=== PATIENT | male | born 1955 | race Caucasian/White ===

== ENCOUNTER 2017-05-24 01:27 | Emergency (ER) | payer BC ==
--- NOTE | 2017-05-24 03:45 | ED ORDER SUMMARY ---
..... Patient: JULIANNE PAINTING OrderSheet [facility] VisitID: [id number] [place] [address] 61y, M Registration Date/Time: 05/24/2017 ORDER SHEET Weight: 88.4 kg (stated) Allergies: No Known Drug Allergy GENERAL ORDERS: UA-Culture if indicated Urgent (02:03 05/24/2017 Jassiier R.NGianni per protocol) (2:05 Adalberto R.N.) CT Abd/Pel wo Cont Urgent (02:05/24/2017 Rodger Jasso) (Ack 2:34 Cruz) (2:52 RCollier R.N.) CBC w Diff Urgent (02:05/24/2017 Rodger Jasso) (Ack 2:34 Cruz) (2:35 RCollier R.N.) BMP Urgent (02:05/24/2017 Rodger Jasso) (Ack 2:34 Cruz) (2:35 RCollier R.N.) MEDICATION ORDERS: IV FLUIDS: IV NS : initial bolus 1000 mL (1000 mL/hr), then none - for X1 (NOW) (02:05/24/2017 Rodger Jasso) (Ack 2:18 RCollier R.N.) (2:26 RCollier R.N.) Morphine IV 4 mg (HIGH ALERT MEDICATION, NOW) (02:05/24/2017 Rodger Jasso) (Ack 2:18 RCollier R.N.) (2:28 RCollier R.N.) Toradol IV 30 mg (NOW) (02:05/24/2017 Rodger Jasso) (Ack 2:18 RCollier R.N.) (2:28 RCollier R.N.) IV NS : initial bolus 1000 mL (1000 mL/hr), then none - for X1 (NOW) (02:05/24/2017 Rodger Jasso) (Cancelled: Duplicate Order2:13 Rodger Jasso) Zofran IV 4 mg (NOW) (02:05/24/2017 Rodger Jasso) (Ack 2:26 RCollier R.N.) (2:27 Tato R.Andreas) ORDER SHEET NOTES: [Electronically signed by Bernadine Kirby R.N. (04:03 05/24/2017)] [Electronically signed by Bertin Mckeon Dr. (05:10 05/27/2017)] [Electronically locked/signed by Bernadine Kirby R.N. (04:03 05/24/2017)]
--- NOTE | 2017-05-24 03:45 | ED CLINICAL REPORT ---
Clinical Report - Physicians/Mid Levels [facility] [address] [place] [address] 05/24/2017 1:30 Patient: JULIANNE PAINTING Time Seen: 0203. Arrived- By private vehicle. Historian- patient. HISTORY OF PRESENT ILLNESS Chief Complaint: FLANK PAIN and Left. At its maximum, severity described as severe. When seen in the E.D., severity described as severe. Modifying factors- worsened by movement. Not relieved by anything. It is described as sharp. No radiation. It is described as located in the left flank. This started just prior to arrival today and is still present. It was abrupt in onset and has been constant but is not gone now. The patient has had nausea and vomiting. No loss of appetite or diarrhea. No additional abdominal pain. No recent travel. Similar symptoms previously: Once. ( states this feels exactly like a prior kidney stone about 6 years ago). Recent medical care: Not recently seen/assessed. REVIEW OF SYSTEMS No constipation, black stools, hematemesis, bloody stools or fever. No skin rash. All systems otherwise negative, except as recorded above. PAST HISTORY See nurses notes. Medications: Triamterene Oral. Allergies: No Known Drug Allergy. SOCIAL HISTORY Never smoker. History of occasional drug use: marijuana. No alcohol use. No recent travel. Is a local resident. ADDITIONAL NOTES The nursing notes have been reviewed. PHYSICAL EXAM Vital Signs: 05/24/2017 01:36 BP: 188/104. HR: 63. RR: 22. O2 saturation: 93%. Temp: 98.7 F. Araya-Rangel pain scale: 8/10. Oxygen saturation normal. Appearance: Alert. Oriented X3. Patient in mild distress. CVS: Normal heart rate and rhythm. Heart sounds normal. Pulses normal. Respiratory: No respiratory distress. Breath sounds normal. Chest nontender. Abdomen: Soft and nontender. Bowel sounds normal. Back: Moderate CVA tenderness on the left. Skin: Skin warm and dry. Normal skin color. No rash. Normal skin turgor. Extremities: Extremities exhibit normal ROM. No lower extremity edema. LABS, X-RAYS, AND EKG Abdominal CT: PROCEDURE: CT ABDOMEN/PELVIS W/O CONTRAST INDICATION: LEFT FLANK PAIN TECHNIQUE: Noncontrast axial images were obtained of the entire abdomen and pelvis with sagittal and coronal reformations. COMPARISON: None. FINDINGS: ABDOMEN: There is a 7.3 x 6.8 mm left UVJ calculus with moderate left hydroureteronephrosis. 5 mm nonobstructing left renal lower pole calculus. There is a punctate nonobstructing right renal calculus. Small bilateral radiodense cortical cysts. Lung base are clear. Heart size is normal. Liver, gallbladder, pancreas, spleen and adrenal glands are normal. Mild atherosclerosis. Mild transverse and descending colon diverticulosis. Distal transverse colon 6 x 3.5 x 2 cm lipoma. PELVIS: Appendix not visualized but no evidence of acute appendicitis. Moderate proximal sigmoid colon diverticulosis. Enlarged prostate. There are several calcified bladder calculi. Severe L5-S1 degenerative changes. IMPRESSION: 1. 7.3 x 6.8 mm left UVJ calculus with moderate left hydroureteronephrosis 2. Bilateral nonobstructing renal calculi 3. Several tiny bladder calculi 4. Diverticulosis 5. Distal transverse colon lipoma 6. Enlarged prostate. The study was independently viewed by me and interpreted by the radiologist. The study was discussed with the radiologist (via fax and pacs). Laboratory Tests: UA-Culture if indicated: (COLIN: 05/24/2017 01:50) ( MsgRcvd 05/24/2017 02:19) Final results Test Result Flag Units (Reference) URINE COLOR YELLOW URINE APPEARANCE CLEAR URINE GLUCOSE NEGATIVE (NEGATIVE) URINE BILIRUBIN NEGATIVE (NEGATIVE) URINE KETONE NEGATIVE (NEGATIVE) URINE SPECIFIC GRAVITY 1.020 (1.010-1.030) URINE PH 6.0 (5.0-8.0) URINE PROTEIN NEGATIVE (NEGATIVE) URINE UROBILINOGEN 0.2 EU/dL (0.2-1.0) URINE NITRITE NEGATIVE (NEGATIVE) URINE BLOOD TRACE-INTACT (NEGATIVE) URINE LEUK ESTERASE NEGATIVE (NEGATIVE) URINE RBC RARE rbc/hpf (0-1) URINE WBC 5-10 wbc/hpf (0-1) URINE EPITHELIAL CELLS 0-1 EPI/hpf (0-5) URINE BACTERIA FEW (1+) (NONE SEEN) URINE COMMENT CULT NOT INDICATED URINE CULTURES ARE SET-UP BASED ON THE FOLLOWING CRITERIA:POSITIVE NITRITEPOSITIVE LEUKOCYTE ESTERASEGREATER THAN 10 WHITE BLOOD CELLSMODERATE (2+) OR GREATER BACTERIA CBC w Diff: (COLIN: 05/24/2017 01:55) ( MogRcvd 05/24/2017 02:26) Final results Test Result Flag Units (Reference) WHITE BLOOD COUNT 14.0 H K/uL (4.5-11.5) RED BLOOD COUNT 4.94 M/uL (4.50-5.90) HEMOGLOBIN 15.6 gm/dL (13.5-17.5) HEMATOCRIT 46.5 % (41.0-53.0) MEAN CELL VOLUME 94 fL (80-100) MEAN CORPUSCULAR HGB 32 pg (26-34) MEAN CORPUSCULAR HGB CONC 34 g/dL (31-37) RED CELL DISTRIBUTION WIDTH 13.3 % (11.6-14.8) PLATELET COUNT 288 K/uL (150-400) LYMPH % 31.9 % (25-40) MONO % 3.2 % (3-14) GRANULOCYTE % 64.9 % (53-90) BMP: (COLIN: 05/24/2017 01:55) ( MsgRcvd 05/24/2017 02:28) Final results Test Result Flag Units (Reference) GLUCOSE 192 H mg/dL (70-110) BUN 23 H mg/dL (7-18) CREATININE 1.0 mg/dL (0.6-1.3) Estimated GFR >60 mL/min Estimated GFR- >60 mL/min Note: Persistent reduction over 3 months in eGFR<60 mL/min/1.73 m2 defines CKD. Patients with eGFR values>=60 mL/min/1.73 m2 may also have CKD if evidence ofpersistent proteinuria. Additional information may be foundat www.kidney.org. SODIUM 144 mmol/L (136-145) POTASSIUM 3.7 mmol/L (3.5-5.1) CHLORIDE 106 mmol/L (98-107) CARBON DIOXIDE 31 mmol/L (21-32) CALCIUM 9.1 mg/dL (8.5-10.1) . PROGRESS AND PROCEDURES Course of Care: the patient is a pleasant 61-year-old male presenting for evaluation of left-sided flank pain. This time differential diagnosis includes bowel obstruction, pyelonephritis, or renal colic. Pain medication as been ordered as the working diagnosis at this time is acute renal colic. She has reported similar symptoms withan episode of kidney stones in the past. Patient is agreeable to treatment plan. The patient's workup was remarkable for a rather large stone noted at the UVJ. Because the stone is at the UVJ, there is a high likelihood of the stone passing spontaneously. Upon reevaluation, the patient is resting sound asleep and snoring. Patient appears very comfortable on repeat examination. Patient was awoken and appropriate. Discussed with patient his workup here in the emergency department including diagnosis, home care, follow-up, and return precautions. Recommended patient follow up with urology in regards to other stones that are present in his kidney. Disposition: Discharged. Condition: good. CLINICAL IMPRESSION 05/24/2017 02:51 BP: 128/94. HR: 76. RR: 16. O2 saturation: 89%. Araya-Rangel pain scale: 2/10. Microscopic hematuria (acute). Blood pressure normal. Ureterolithiasis (single stone) in the right ureter (acute). Mild leukocytosis (acute). INSTRUCTIONS Warnings: GENERAL WARNINGS: Return or contact your physician immediately if your condition worsens or changes unexpectedly, if not improving as expected, or if other problems arise. SPECIFICALLY, return if you develop pain, fever, vomiting, the inability to keep fluids down, blood in vomitus, blood in diarrhea, fainting or lightheadedness. Your Current Medications: CONTINUE TAKING THE FOLLOWING MEDICATIONS: Triamterene Oral. Prescription Medications: Zofran (orally disintegrating tablets) 4 mg: take 1 orally every 8 hours as needed for nausea and vomiting. Dispense ten (10). No refill. Substitution is permissible. Motrin 600 mg tablets: take 1 tablet orally as needed for pain. Dispense thirty (30). No refill. Substitution is permissible. (take with food) Percocet 5 mg/325 mg: take 1 tablet orally every 6 hours as needed for pain. Dispense twenty (20). No refill. Substitution is permissible. Follow-up: Return to the emergency department as needed. Follow up with your doctor in three days. Reason for referral: recheck today's concerns. Summary of care provided to patient via paper. Screening today revealed the patient's blood pressure to be in the normal range. The patient should follow up with a primary care provider for blood pressure management. Understanding of the discharge instructions verbalized by patient. Follow-up with: Phillip Celis MD, Urology, , [address] [place] [address], , [place], [id number] Follow up in one week. Reason for referral: recheck today's concerns. Summary of care provided to patient via paper. (Electronically signed by Bertin Mckeon Dr. 05/27/2017 5:10) Addenda for JULIANNE PAINTING VisitID: [id number] Date: 05/24/2017 05/24/2017 12:25 Pharmacy called, clarified Motrin order RX for pt to take Motrin 600mg #[address] Cruz wrote RX, Dr. Edge clarified due to no amount or frequency ordered. (Electronically signed by Oren Huerta R.N. - 05/24/2017 12:25)
--- NOTE | 2017-05-24 03:45 | ED NURSING NOTES ---
Clinical Report - Nurses [facility] [address] [place] [address] 05/24/2017 1:30 Patient: JULIANNE PAINTING TRIAGE Triage time 01:36. Acuity: LEVEL 3. Chief Complaint: ABDOMINAL PAIN, NAUSEA and VOMITING and FLANK PAIN (left sided abd and flank pain). Alert. --01:42 Linnette Barrera R.N. 01:36 05/24/17. BP: 188/104. HR: 63. RR: 22. O2 saturation: 93%. Temp: 98.7 F (oral). Araya-Rangel pain scale: 8/10. --01:42 Linnette Barrera R.N. Weight: 88.4 kg stated. Height/Length: 69 inches Per Patient. BMI: 28.8. --01:38 Linnette Barrera R.N. Medications Triamterene Oral. --01:37 Linnette Barrera R.N. Allergies No Known Drug Allergy. --01:37 Linnette Barrera R.N. History Arrived by private vehicle. Historian: patient. Primary physician (Stefania). This started today. Onset. (about 2 hours ago). 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 PAST MEDICAL HX: Immunizations: up-to-date. SOCIAL HX: Smoker- current status unknown. History of drug use: marijuana. No alcohol use. NUTRITIONAL RISK ASSESSMENT: The nutritional risk assessment revealed no deficiencies. FUNCTIONAL ASSESSMENT: Functional assessment: no impairments noted. --01:42 Linnette Barrera R.N. PROBLEMS: Nephrolithiasis. Hypertension. --01:37 Linnette Barrera R.N. ADDITIONAL SURGERIES: Appendectomy. Tonsillectomy. --01:37 Linnette Barrera R.N. Interventions ID band on patient. To treatment room. --01:42 Linnette Barrera R.N. PHYSICAL ASSESSMENT To room via wheelchair. Patient gowned. GENERAL / NEURO / PSYCH: Alert. Oriented X 4. Appears in pain and anxious. CVS: Capillary refill less than 2 seconds. SKIN: Skin is warm and dry. --01:42 Linnette Barrera R.N. NURSING PROGRESS NOTES Head of bed elevated. Two patient identifiers checked. Call light placed in reach. Side rails up x 1. Bed placed in lowest position. Brakes of bed on. --01:43 Linnette Barrera R.N. Patient ready for evaluation- chart flagged. --01:43 Linnette Barrera R.N. ( pt given urinal and sample requested.). --01:44 Linnette Barrera R.N. 02:00 05/24/2017 Site #1 started via IV in the right antecubital space with an 20g angiocath, with aseptic technique and good blood return; one attempt. Blood drawn: rainbow set. Labeled in the presence of the patient and sent to the lab. Saline lock flushed with 10 mL saline. --02:00 Linnette Barrera R.N. Patient ID band checked for patient name and birthdate: patient confirmed urine collected with return of yellow-colored clear urine; sample sent to lab. Specimen labeled in the presence of the patient. --02:00 Linnette Barrera R.N. GI / : The patient reports vomiting. --02:01 Linnette Barrera R.N. Patient returned from CT by stretcher with tech. (02:49). --02:51 Linnette Barrera R.N. 02:51 05/24/17. BP: 128/94. HR: 76. RR: 16. O2 saturation: 89% on room air. Araya-Rangel pain scale: 2/10. --02:52 Linnette Barrera R.N. 03:41 05/24/2017 IV Fluids IV NS Discontinued: completed. Total amount infused: 1000 mL. IV patency established. IV site checked: no pain, redness, or swelling. IV flushed thoroughly. --03:41 Bernadine Kirby R.N. DISPOSITION / DISCHARGE 02:20 05/24/2017 Started bag #1 1000 mL IV Fluids IV NS (Saline); at 1000 mL/hr via site #1 via IV pump. Allergies verified and confirmed 5 rights. IV patency established. IV site checked: no pain, redness, or swelling. IV flushed thoroughly pre- and post-medication administration. --02:26 Linnette Barrera R.N. 02:21 05/24/2017 Zofran (Ondansetron HCl) IVP 4 mg given over 30 second(s) via site #1. Allergies verified and confirmed 5 rights. IV patency established. IV site checked: no pain, redness, or swelling. IV flushed thoroughly pre- and post-medication administration. IVP given by RN. --02:27 Linnette Barrera R.N. 02:23 05/24/2017 Toradol IVP 30 mg given over 1 minute(s) via site #1. Allergies verified and confirmed 5 rights. IV patency established. IV site checked: no pain, redness, or swelling. IV flushed thoroughly pre- and post-medication administration. IVP given by RN. --02:28 Linnette Barrera R.N. 02:25 05/24/2017 Morphine IVP 4 mg given over 60 second(s) via site #1. Allergies verified, confirmed 5 rights and sedative warning given to the patient. IV patency established. IV site checked: no pain, redness, or swelling. IV flushed thoroughly pre- and post-medication administration. IVP given by RN. --02:28 Linnette Barrera R.N. Departure time: 0400. Condition at departure: improved and stable. No learning barriers present. Discharge instructions provided and reviewed with the patient. Reviewed medication(s) side effects, precautions, dosing and course information. Prescription(s) given to the patient. Reviewed referral to a urologist for followup. Patient verbalized understanding. Written instructions provided in Thai. The patient was discharged home and accompanied by family. He left the Emergency Department ambulatory and via private vehicle. Family member driving. --04:02 Bernadine Kirby R.N. 04:00 05/24/17. BP: 154/94 taken on the left arm, while lying. HR: 85 (regular). RR: 18 (regular and unlabored). O2 saturation: 93% on room air. Temp: deferred. Pain level now: 12/07. --04:02 Bernadine Kirby R.N. 04:00 05/24/2017 Site #1 removed upon discharge. Catheter intact. Manual pressure and bandage applied. --04:02 Bernadine Kirby R.N. Locked/Released at 05/24/2017 4:03 by Bernadine Kirby R.N.
--- NOTE | 2017-05-24 03:45 | ED ORDER SUMMARY ---
..... Patient: JULIANNE PAINTING OrderSheet [facility] VisitID: [id number] [place] [address] 61y, M Registration Date/Time: 05/24/2017 ORDER SHEET Weight: 88.4 kg (stated) Allergies: No Known Drug Allergy GENERAL ORDERS: UA-Culture if indicated Urgent (02:03 05/24/2017 Jassiier R.NGianni per protocol) (2:05 Adalberto R.N.) CT Abd/Pel wo Cont Urgent (02:05/24/2017 Rodger Jasso) (Ack 2:34 Cruz) (2:52 RCollier R.N.) CBC w Diff Urgent (02:05/24/2017 Rodger Jasso) (Ack 2:34 Cruz) (2:35 RCollier R.N.) BMP Urgent (02:05/24/2017 Rodger Jasso) (Ack 2:34 Cruz) (2:35 RCollier R.N.) MEDICATION ORDERS: IV FLUIDS: IV NS : initial bolus 1000 mL (1000 mL/hr), then none - for X1 (NOW) (02:05/24/2017 Rodger Jasso) (Ack 2:18 RCollier R.N.) (2:26 RCollier R.N.) Morphine IV 4 mg (HIGH ALERT MEDICATION, NOW) (02:05/24/2017 Rodger Jasso) (Ack 2:18 RCollier R.N.) (2:28 RCollier R.N.) Toradol IV 30 mg (NOW) (02:05/24/2017 Rodger Jasso) (Ack 2:18 RCollier R.N.) (2:28 RCollier R.N.) IV NS : initial bolus 1000 mL (1000 mL/hr), then none - for X1 (NOW) (02:05/24/2017 Rodger Jasso) (Cancelled: Duplicate Order2:13 Rodger Jasso) Zofran IV 4 mg (NOW) (02:05/24/2017 Rodger Jasso) (Ack 2:26 RCollier R.N.) (2:27 Tato R.Andreas) ORDER SHEET NOTES: [Electronically signed by Bernadine Kirby R.N. (04:03 05/24/2017)] [Electronically signed by Bertin Mckeon Dr. (05:10 05/27/2017)] [Electronically locked/signed by Bernadine Kirby R.N. (04:03 05/24/2017)]
--- NOTE | 2017-05-24 06:34 | DIAGNOSTIC IMAGING REPORT ---
PROCEDURE: CT ABDOMEN/PELVIS W/O CONTRAST INDICATION: LEFT FLANK PAIN TECHNIQUE: Noncontrast axial images were obtained of the entire abdomen and pelvis with sagittal and coronal reformations. COMPARISON: None. FINDINGS: ABDOMEN: There is a 7.3 x 6.8 mm left UVJ calculus with moderate left hydroureteronephrosis. 5 mm nonobstructing left renal lower pole calculus. There is a punctate nonobstructing right renal calculus. Small bilateral radiodense cortical cysts. Lung base are clear. Heart size is normal. Liver, gallbladder, pancreas, spleen and adrenal glands are normal. Mild atherosclerosis. Mild transverse and descending colon diverticulosis. Distal transverse colon 6 x 3.5 x 2 cm lipoma. PELVIS: Appendix not visualized but no evidence of acute appendicitis. Moderate proximal sigmoid colon diverticulosis. Enlarged prostate. There are several calcified bladder calculi. Severe L5-S1 degenerative changes. IMPRESSION: 1. 7.3 x 6.8 mm left UVJ calculus with moderate left hydroureteronephrosis 2. Bilateral nonobstructing renal calculi 3. Several tiny bladder calculi 4. Diverticulosis 5. Distal transverse colon lipoma 6. Enlarged prostate 7. Preliminary results submitted by Dr. Portillo, [facility] radiology All CT scans at this facility use dose modulation, iterative reconstruction, and/or weight-based dosing when appropriate to reduce radiation dose to as low as reasonably achievable.
--- NOTE | 2017-05-27 05:10 | ED DISCHARGE INSTRUCTIONS ---
Patient: JULIANNE PAINTING General Instructions [facility] VisitID: [id number] [place] [address] 61y, M Registration Date/Time: 05/24/2017 05/24/2017 02:51 BP: 128/94. HR: 76. RR: 16. O2 saturation: 89%. Araya-Rangel pain scale: 2/10. Microscopic hematuria (acute). Blood pressure normal. Ureterolithiasis (single stone) in the right ureter (acute). Mild leukocytosis (acute). INSTRUCTIONS Warnings: GENERAL WARNINGS: Return or contact your physician immediately if your condition worsens or changes unexpectedly, if not improving as expected, or if other problems arise. SPECIFICALLY, return if you develop pain, fever, vomiting, the inability to keep fluids down, blood in vomitus, blood in diarrhea, fainting or lightheadedness. Your Current Medications: CONTINUE TAKING THE FOLLOWING MEDICATIONS: Triamterene Oral. Prescription Medications: Zofran (orally disintegrating tablets) 4 mg: take 1 orally every 8 hours as needed for nausea and vomiting. Dispense ten (10). No refill. Substitution is permissible. Motrin 600 mg tablets: take 1 tablet orally as needed for pain. Dispense thirty (30). No refill. Substitution is permissible. (take with food) Percocet 5 mg/325 mg: take 1 tablet orally every 6 hours as needed for pain. Dispense twenty (20). No refill. Substitution is permissible. Follow-up: Return to the emergency department as needed. Follow up with your doctor in three days. Reason for referral: recheck today's concerns. Summary of care provided to patient via paper. Screening today revealed the patient's blood pressure to be in the normal range. The patient should follow up with a primary care provider for blood pressure management. Understanding of the discharge instructions verbalized by patient. Follow-up with: Phillip Celis MD, Urology, , [address] [place] [address], , [place], [id number] Follow up in one week. Reason for referral: recheck today's concerns. Summary of care provided to patient via paper. ADDITIONAL INFORMATION Kidney Stone (W/ Colic) The sharp cramping pain and nausea/vomiting that you have is due to a small stone which has formed in the kidney and is now passing down a narrow tube (ureter) on its way to your bladder. Once it reaches your bladder, the pain will stop. The stone may pass in your urine stream in one piece. [The size may be 1/16" to 1/4" (1-6mm)]. Or, the stone may also break up into esa fragments which you may not even notice. Once you have had a kidney stone, you are at risk for developing another one in the future. Home Care: Drink plenty of fluids (at least 8 to 10 glasses of water a day). Most stones will pass on their own, but may take from a few hours to a few days. Sometimes the stone is too large to pass by itself and special methods will have to be used to remove the stone. Each time you urinate, do so in a jar. Pour the urine from the jar through the strainer and into the toilet. Continue doing this until 24 hours after your pain stops. By then, if there was a kidney stone, it should pass from your bladder. Some stones dissolve into sand-like particles and pass right through the strainer. In that case, you wont ever see a stone. Save any stone that you find in the strainer and bring it to your doctor for analysis. It may be possible to prevent certain types of stones from forming. Therefore, it is important to know what kind of stone you have. Try to stay as active as possible since this will help the stone pass. Do not stay in bed unless your pain prevents you from getting up. You may notice a red, pink or brown color to your urine. This is normal while passing a kidney stone. Follow Up with your doctor or return to this facility if the pain lasts more than 48 hours. Get Prompt Medical Attention if any of the following occur: Pain that is not controlled by the medicine given Repeated vomiting or unable to keep down fluids Weakness, dizziness or fainting Fever of 100.4F (38C) or higher, or as directed by your healthcare provider Passage of solid red or brown urine (can't see through it) or urine with lots of blood clots Unable to pass urine for 8 hours and increasing bladder pressure Blood In The Urine Blood in the urine ("hematuria") has many possible causes. If it occurs after an injury (such as a car accident or fall), it is most often a sign of bruising to the kidney or bladder. Common medical causes of blood in the urine include urinary tract infection, kidney stone, inflammation, tumors, or certain other diseases of the kidney or bladder. Menstruation can cause blood to appear in the urine sample, although it is not coming from the urinary tract. If only a trace amount of blood is present, it will show up on the urine test, even though the urine may be yellow and not pink or red. This may occur with any of the above conditions, as well as heavy exercise or high fever. In this case, your doctor may want to repeat the urine test on another day. This will show if the blood is still present. If so, then other tests can be done to find out the cause. Home Care: If your urine does not appear bloody (pink, brown or red) then you do not need to restrict your activity in any way. If you can see blood in your urine, rest and avoid heavy exertion until your next exam. Do not use aspirin or anti-inflammatory medicine like ibuprofen (Motrin, Advil) or naproxen (Naprosyn, Aleve). These thin the blood and may increase bleeding. Follow Up with your doctor or as advised by our staff. If you were injured and had blood in your urine, you should have a repeat urine test in 1-2 days. Contact your doctor or return to this facility for this test. [NOTE: A radiologist will review any X-rays that were taken. We will notify you of any new findings that may affect your care.] Get Prompt Medical Attention if any of the following occur: Bright red blood or blood clots in the urine (if a new symptom) Weakness, dizziness or fainting New groin, abdominal or back pain Fever of 100.4F (38C) or higher, or as directed by your healthcare provider Repeated vomiting Bleeding from nose, gums or easy bruising Ondansetron Oral disintegrating tablet What is this medicine? ONDANSETRON (on KATHERINE se emma) is used to treat nausea and vomiting caused by chemotherapy. It is also used to prevent or treat nausea and vomiting after surgery. How should I use this medicine? These tablets are made to dissolve in the mouth. Do not try to push the tablet through the foil backing. With dry hands, peel away the foil backing and gently remove the tablet. Place the tablet in the mouth and allow it to dissolve, then swallow. While you may take these tablets with water, it is not necessary to do so. Talk to your supervisor bridges and buildings regarding the use of this medicine in children. Special care may be needed. What side effects may I notice from receiving this medicine? Side effects that you should report to your doctor or health post acute care nurse practitioner as soon as possible: allergic reactions like skin rash, itching or hives, swelling of the face, lips, or tongue breathing problems dizziness fast or irregular heartbeat feeling faint or lightheaded, falls fever and chills swelling of the hands and feet tightness in the chest Side effects that usually do not require medical attention (report to your doctor or health post acute care nurse practitioner if they continue or are bothersome): constipation or diarrhea headache What may interact with this medicine? Do not take this medicine with any of the following medications: -apomorphine -cisapride -dofetilide -dronedarone -pimozide -thioridazine -ziprasidone This medicine may also interact with the following medications: -carbamazepine -phenytoin -rifampicin -tramadol -other medicines that prolong the QT interval (cause an abnormal heart rhythm) What if I miss a dose? If you miss a dose, take it as soon as you can. If it is almost time for your next dose, take only that dose. Do not take double or extra doses. Where should I keep my medicine? Keep out of the reach of children. Store between 2 and 30 degrees C (36 and 86 degrees F). Throw away any unused medicine after the expiration date. What should I tell my health care provider before I take this medicine? They need to know if you have any of these conditions: heart disease history of irregular heartbeat liver disease low levels of magnesium or potassium in the blood an unusual or allergic reaction to ondansetron, granisetron, other medicines, foods, dyes, or preservatives or trying to get breast-feeding What should I watch for while using this medicine? Check with your doctor or health post acute care nurse practitioner as soon as you can if you have any sign of an allergic reaction. Ibuprofen Oral tablet What is this medicine? IBUPROFEN (eye BYOO proe fen) is a non-steroidal anti-inflammatory drug (NSAID). It is used for dental pain, fever, headaches or migraines, osteoarthritis, rheumatoid arthritis, or painful monthly periods. It can also relieve minor aches and pains caused by a cold, flu, or sore throat. How should I use this medicine? Take this medicine by mouth with a glass of water. Follow the directions on the prescription label. Take this medicine with food if your stomach gets upset. Try to not lie down for at least 10 minutes after you take the medicine. Take your medicine at regular intervals. Do not take your medicine more often than directed. A special MedGuide will be given to you by the pharmacist with each prescription and refill. Be sure to read this information carefully each time. Talk to your supervisor bridges and buildings regarding the use of this medicine in children. Special care may be needed. What side effects may I notice from receiving this medicine? Side effects that you should report to your doctor or health post acute care nurse practitioner as soon as possible: allergic reactions like skin rash, itching or hives, swelling of the face, lips, or tongue black or bloody stools, blood in the urine or in vomit breathing problems changes in vision chest pain general ill feeling or flu-like symptoms nausea or vomiting redness, blistering, peeling or loosening of the skin, including inside the mouth slurred speech or weakness on one side of the body stomach pain unexplained weight gain or swelling unusually weak or tired yellowing of eyes or skin Side effects that usually do not require medical attention (report to your doctor or health post acute care nurse practitioner if they continue or are bothersome): constipation or diarrhea dizziness gas or heartburn stomach upset What may interact with this medicine? Do not take this medicine with any of the following medications: cidofovir ketorolac methotrexate pemetrexed This medicine may also interact with the following medications: alcohol aspirin diuretics lithium other drugs for inflammation like prednisone warfarin What if I miss a dose? If you miss a dose, take it as soon as you can. If it is almost time for your next dose, take only that dose. Do not take double or extra doses. Where should I keep my medicine? Keep out of the reach of children. Store at room temperature between 15 and 30 degrees C (59 and 86 degrees F). Keep container tightly closed. Throw away any unused medicine after the expiration date. What should I tell my health care provider before I take this medicine? They need to know if you have any of these conditions: asthma cigarette smoker drink more than 3 alcohol containing drinks a day heart disease or circulation problems such as heart failure or leg edema (fluid retention) high blood pressure kidney disease liver disease stomach bleeding or ulcers an unusual or allergic reaction to ibuprofen, aspirin, other NSAIDS, other medicines, foods, dyes, or preservatives or trying to get breast-feeding What should I watch for while using this medicine? Tell your doctor or healthcare professional if your symptoms do not start to get better or if they get worse. This medicine does not prevent heart attack or stroke. In fact, this medicine may increase the chance of a heart attack or stroke. The chance may increase with longer use of this medicine and in people who have heart disease. If you take aspirin to prevent heart attack or stroke, talk with your doctor or health post acute care nurse practitioner. Do not take other medicines that contain aspirin, ibuprofen, or naproxen with this medicine. Side effects such as stomach upset, nausea, or ulcers may be more likely to occur. Many medicines available without a prescription should not be taken with this medicine. This medicine can cause ulcers and bleeding in the stomach and intestines at any time during treatment. Ulcers and bleeding can happen without warning symptoms and can cause . To reduce your risk, do not smoke cigarettes or drink alcohol while you are taking this medicine. You may get drowsy or dizzy. Do not drive, use machinery, or do anything that needs mental alertness until you know how this medicine affects you. Do not stand or sit up quickly, especially if you are an older patient. This reduces the risk of dizzy or fainting spells. This medicine can cause you to bleed more easily. Try to avoid damage to your teeth and gums when you brush or floss your teeth. Oxycodone Hydrochloride, Acetaminophen Oral tablet What is this medicine? ACETAMINOPHEN; OXYCODONE (a set a DIANA reji fen; ox i KOE done) is a pain reliever. It is used to treat mild to moderate pain. How should I use this medicine? Take this medicine by mouth with a full glass of water. Follow the directions on the prescription label. Take your medicine at regular intervals. Do not take your medicine more often than directed. Talk to your supervisor bridges and buildings regarding the use of this medicine in children. Special care may be needed. Patients over 65 years old may have a stronger reaction and need a smaller dose. What side effects may I notice from receiving this medicine? Side effects that you should report to your doctor or health post acute care nurse practitioner as soon as possible: allergic reactions like skin rash, itching or hives, swelling of the face, lips, or tongue breathing difficulties, wheezing confusion light headedness or fainting spells severe stomach pain yellowing of the skin or the whites of the eyes Side effects that usually do not require medical attention (report to your doctor or health post acute care nurse practitioner if they continue or are bothersome): dizziness drowsiness nausea vomiting What may interact with this medicine? alcohol antihistamines barbiturates like amobarbital, butalbital, butabarbital, methohexital, pentobarbital, phenobarbital, thiopental, and secobarbital benztropine drugs for bladder problems like solifenacin, trospium, oxybutynin, tolterodine, hyoscyamine, and methscopolamine drugs for breathing problems like ipratropium and tiotropium drugs for certain stomach or intestine problems like propantheline, homatropine methylbromide, glycopyrrolate, atropine, belladonna, and dicyclomine general anesthetics like etomidate, ketamine, nitrous oxide, propofol, desflurane, enflurane, halothane, isoflurane, and sevoflurane medicines for depression, anxiety, or psychotic disturbances medicines for sleep muscle relaxants naltrexone narcotic medicines (opiates) for pain phenothiazines like perphenazine, thioridazine, chlorpromazine, mesoridazine, fluphenazine, prochlorperazine, promazine, and trifluoperazine scopolamine tramadol trihexyphenidyl What if I miss a dose? If you miss a dose, take it as soon as you can. If it is almost time for your next dose, take only that dose. Do not take double or extra doses. Where should I keep my medicine? Keep out of the reach of children. This medicine can be abused. Keep your medicine in a safe place to protect it from theft. Do not share this medicine with anyone. Selling or giving away this medicine is dangerous and against the law. Store at room temperature between 20 and 25 degrees C (68 and 77 degrees F). Keep container tightly closed. Protect from light. This medicine may cause accidental overdose and if it is taken by other adults, children, or pets. Flush any unused medicine down the toilet to reduce the chance of harm. Do not use the medicine after the expiration date. What should I tell my health care provider before I take this medicine? They need to know if you have any of these conditions: brain tumor Crohn's disease, inflammatory bowel disease, or ulcerative colitis drink more than 3 alcohol containing drinks per day drug abuse or addiction head injury heart or circulation problems kidney disease or problems going to the bathroom liver disease lung disease, asthma, or breathing problems an unusual or allergic reaction to acetaminophen, oxycodone, other opioid analgesics, other medicines, foods, dyes, or preservatives or trying to get breast-feeding What should I watch for while using this medicine? Tell your doctor or health post acute care nurse practitioner if your pain does not go away, if it gets worse, or if you have new or a different type of pain. You may develop tolerance to the medicine. Tolerance means that you will need a higher dose of the medication for pain relief. Tolerance is normal and is expected if you take this medicine for a long time. Do not suddenly stop taking your medicine because you may develop a severe reaction. Your body becomes used to the medicine. This does NOT mean you are addicted. Addiction is a behavior related to getting and using a drug for a non-medical reason. If you have pain, you have a medical reason to take pain medicine. Your doctor will tell you how much medicine to take. If your doctor wants you to stop the medicine, the dose will be slowly lowered over time to avoid any side effects. You may get drowsy or dizzy. Do not drive, use machinery, or do anything that needs mental alertness until you know how this medicine affects you. Do not stand or sit up quickly, especially if you are an older patient. This reduces the risk of dizzy or fainting spells. Alcohol may interfere with the effect of this medicine. Avoid alcoholic drinks. There are different types of narcotic medicines (opiates) for pain. If you take more than one type at the same time, you may have more side effects. Give your health care provider a list of all medicines you use. Your doctor will tell you how much medicine to take. Do not take more medicine than directed. Call emergency for help if you have problems breathing. The medicine will cause constipation. Try to have a bowel movement at least every 2 to 3 days. If you do not have a bowel movement for 3 days, call your doctor or health post acute care nurse practitioner. Do not take Tylenol (acetaminophen) or medicines that have acetaminophen with this medicine. Too much acetaminophen can be very dangerous. Many nonprescription medicines contain acetaminophen. Always read the labels carefully to avoid taking more acetaminophen. You have been given the following additional information: Kidney Stone W/ Colic Hematuria Ondansetron Oral disintegrating tablet Ibuprofen Oral tablet Oxycodone Hydrochloride, Acetaminophen Oral tablet (Electronically signed by Bertin Mckeon Dr. 05/27/2017 5:10)
--- NOTE | 2017-05-27 05:10 | ED MAR SUMMARY ---
..... Medication Administration Record [facility] [address] [place] [address] Patient: JULIANNE PAINTING Visit ID: [id number] 61y, M Weight: 88.4 kg Height/Length: 69 in BMI: 28.8 ALLERGIES: No Known Drug Allergy Start 02:20 05/24/2017 Linnette Barrera R.N., Stop 03:41 05/24/2017 Bernadine Kirby R.N. Medication Administered: IV NS (SALINE), Dose: IV Fluids, Rate: 1000 mL/hr, Dispensed: 1000 mL bag, Site: #1 right AC. Medication Ordered: IV NS : initial bolus 1000 mL (1000 mL/hr), then none - for X1 (NOW). Given 02:21 05/24/2017 Linnette Barrera R.N. Medication Administered: ZOFRAN [IVP] (ONDANSETRON HCL), Dose: 4 mg IVP over 30 second(s), Site: #1 right AC. Medication Ordered: Zofran IV 4 mg (NOW). Given 02:23 05/24/2017 Linnette Barrera R.N. Medication Administered: TORADOL [IVP], Dose: 30 mg IVP over 1 minute(s), Site: #1 right AC. Medication Ordered: Toradol IV 30 mg (NOW). Given 02:25 05/24/2017 Linnette Barrera R.N. Medication Administered: MORPHINE [IVP], Dose: 4 mg IVP over 60 second(s), Site: #1 right AC. Medication Ordered: Morphine IV 4 mg (HIGH ALERT MEDICATION, NOW).
--- NOTE | 2017-05-27 05:10 | ED MAR SUMMARY ---
..... Medication Administration Record [facility] [address] [place] [address] Patient: JULIANNE PAINTING Visit ID: [id number] 61y, M Weight: 88.4 kg Height/Length: 69 in BMI: 28.8 ALLERGIES: No Known Drug Allergy Start 02:20 05/24/2017 Linnette Barrera R.N., Stop 03:41 05/24/2017 Bernadine Kirby R.N. Medication Administered: IV NS (SALINE), Dose: IV Fluids, Rate: 1000 mL/hr, Dispensed: 1000 mL bag, Site: #1 right AC. Medication Ordered: IV NS : initial bolus 1000 mL (1000 mL/hr), then none - for X1 (NOW). Given 02:21 05/24/2017 Linnette Barrera R.N. Medication Administered: ZOFRAN [IVP] (ONDANSETRON HCL), Dose: 4 mg IVP over 30 second(s), Site: #1 right AC. Medication Ordered: Zofran IV 4 mg (NOW). Given 02:23 05/24/2017 Linnette Barrera R.N. Medication Administered: TORADOL [IVP], Dose: 30 mg IVP over 1 minute(s), Site: #1 right AC. Medication Ordered: Toradol IV 30 mg (NOW). Given 02:25 05/24/2017 Linnette Barrera R.N. Medication Administered: MORPHINE [IVP], Dose: 4 mg IVP over 60 second(s), Site: #1 right AC. Medication Ordered: Morphine IV 4 mg (HIGH ALERT MEDICATION, NOW).
--- NOTE | 2017-05-27 05:10 | ED MED RECONCILIATION SUMMARY ---
Patient: JULIANNE PAINTING Medication Reconciliation Report [facility] VisitID: [id number] [place] [address] 61y, M Registration Date/Time: 05/24/2017 Weight: 88.4 kg Height/Length: 69 in. BMI: 28.8 ALLERGIES: No Known Drug Allergy The patient's Home Medications are listed below: CONTINUE TAKING THE FOLLOWING MEDICATIONS: Triamterene Oral The source(s) of the original Home Medication information: Not obtained. The following Medications were given to the patient in the Emergency Department: IV NS IV Fluids bolus 0, then 1000 mL/hr, administered: 05/24/2017 2:20:00 AM Zofran [IVP] IVP 4 mg, administered: 05/24/2017 2:21:00 AM Toradol [IVP] IVP 30 mg, administered: 05/24/2017 2:23:00 AM Morphine [IVP] IVP 4 mg, administered: 05/24/2017 2:25:00 AM The following Medications were prescribed to the patient: Zofran (orally disintegrating tablets) 4 mg: take 1 orally every 8 hours as needed for nausea and vomiting. Dispense ten (10). No refill. Substitution is permissible. -- Bertin Mckeon Dr. Motrin 600 mg tablets: take 1 tablet orally as needed for pain. Dispense thirty (30). No refill. Substitution is permissible.(take with food) -- Bertin Mckeon Dr. Percocet 5 mg/325 mg: take 1 tablet orally every 6 hours as needed for pain. Dispense twenty (20). No refill. Substitution is permissible. -- Bertin Mckeon Dr.
--- NOTE | 2017-05-27 05:10 | ED MED RECONCILIATION SUMMARY ---
Patient: JULIANNE PAINTING Medication Reconciliation Report [facility] VisitID: [id number] [place] [address] 61y, M Registration Date/Time: 05/24/2017 Weight: 88.4 kg Height/Length: 69 in. BMI: 28.8 ALLERGIES: No Known Drug Allergy The patient's Home Medications are listed below: CONTINUE TAKING THE FOLLOWING MEDICATIONS: Triamterene Oral The source(s) of the original Home Medication information: Not obtained. The following Medications were given to the patient in the Emergency Department: IV NS IV Fluids bolus 0, then 1000 mL/hr, administered: 05/24/2017 2:20:00 AM Zofran [IVP] IVP 4 mg, administered: 05/24/2017 2:21:00 AM Toradol [IVP] IVP 30 mg, administered: 05/24/2017 2:23:00 AM Morphine [IVP] IVP 4 mg, administered: 05/24/2017 2:25:00 AM The following Medications were prescribed to the patient: Zofran (orally disintegrating tablets) 4 mg: take 1 orally every 8 hours as needed for nausea and vomiting. Dispense ten (10). No refill. Substitution is permissible. -- Bertin Mckeon Dr. Motrin 600 mg tablets: take 1 tablet orally as needed for pain. Dispense thirty (30). No refill. Substitution is permissible.(take with food) -- Bertin Mckeon Dr. Percocet 5 mg/325 mg: take 1 tablet orally every 6 hours as needed for pain. Dispense twenty (20). No refill. Substitution is permissible. -- Bertin Mckeon Dr.
== END 2017-05-24 04:00 | disposition home or self-care (01) ==
LOC: ED SRH 01:27
DX: N20.1 Calculus of ureter (principal); R31.29 Other microscopic hematuria; D72.829 Elevated white blood cell count, unspecified; I10 Essential (primary) hypertension; Z79.899 Other long term (current) drug therapy
CPT/HCPCS: 90004; 90047; 95059